=== PATIENT | female | born 1985 | race Caucasian/White ===

== ENCOUNTER → 2017-06-26 18:34 | Outpatient (CLI) | payer OTHER, SELFPAY ==
[2017-06-26 21:49] LABS: Group B Strep DNA By PCR Negative (Negative); Internal Control PASS; Probe Check PASS; Specimen Processing Control PASS
== END ==
PROVIDERS: Visit Provider Obstetrics & Gynecology
DX: Z36.85 Encounter for antenatal screening for Streptococcus B (principal)
CPT/HCPCS: 87081; 87653

== ENCOUNTER 2017-07-26 23:55 | Inpatient (IN) | payer OTHER, SELFPAY ==
[2017-07-27 00:28] VITALS: BMI 24.3
[2017-07-27 00:42] LABS: Hematocrit 35.2 % (37-47); Mean Corp Hgb Conc 34.1 g/gl (32-36); Mean Corpuscular Hgb 30.8 pg (27.0-32.0); Mean Corpuscular Volume 90.3 fL (81-99); Mean Platelet Vol. 10.9 fl (6.2-12.0); Platelet Count 212 K/mm3 (150-450); RBC Distribution Width CV 13.4 % (11.6-14.6); RBC Distribution Width SD 43.3 fl (35.1-43.9); White Blood Count 8.9 K/mm3 (4.4-11.0)
[2017-07-27 00:43] LABS: Scan Indicated on CBC? Y/N NO
[2017-07-27] MEDS: Lactated Ringers 1,000 ML 50 ML IV ×3 (01:14→05:06)
[2017-07-27] MEDS: Mag Hydrox/Al Hydrox/Simeth 30 ML UDC PO (02:16)
--- NOTE | 2017-07-27 04:38 | PCM.PN.OB ---
Subjective: Relateively comfortable with epidural Objective: Afeb VSS FHR tracing Cat 1. - Physical Exam General: Alert, Oriented x3, Cooperative, No apparent distress Lungs: Clear to auscultation, Normal air movement Cardiovascular: Regular rate, Regular Rhythm Abdomen: Soft, Non Tender, Non-Distended, Gravid, Appropriate for Gestational Age Extremities: No edema Psych/Mental Status: Normal Affect Comment: CE FD +1 to +2 station Weight: 159 lb 13.362 oz Body Mass Index (BMI) 24.3 Laboratory Tests Past 24 Hrs 07/27/17 07/27/17 07/27/17 00:28 00:28 00:28 WBC 8.9 RBC 3.90 L Hgb 12.0 Hct 35.2 L MCV 90.3 MCH 30.8 MCHC 34.1 RDW 13.4 RDW Differential 43.3 Plt Count 212 MPV 10.9 Blood Type A NEGATIVE Antibody Screen Not Reportable NEGATIVE Assessment/Plan Will start pushing efforts.
--- NOTE | 2017-07-27 04:46 | DCINST_ITS ---
Discharge Diet: No Restrictions Discharge Activity: Return to Normal Activity, May Drive, May Shower Return to work on:: 09/25/17 May resume sexual activity in: 4-6 weeks Call your doctor if your incision/area has: Sudden Increased Bleeding, Increased Pain/ Swelling, Increased Redness, Foul Smelling Discharge Call your doctor if you observe: Fever of 101 or Higher, Inability to urinate, Inability to have a bowel movement, Using more than one pad per hour, Shortness of breath, Chest pain, Calf discomfort, Uncontrolled pain Cleanse incision/area with: Soap & Water Additional Instructions: If you experience any of the following, contact your healthcare provider. * Bleeding that soaks a pad every hour for 2 hours * Fever 100.4 or higher * Unrelieved incision or abdominal pain * Swelling, redness, discharge or bleeding from your incision or episiotomy site * Your incision begins to separate * Problems urinating (including inability to urinate or burning while urinating) . * Visual changes * Severe headache * Flu-like symptoms * Pain or redness in one of both of your breasts * Pain, warmth, tenderness or swelling in your legs, especially the calf area * Frequent nausea and vomiting * Symptoms of depression or anxiety If you experience any of the following, call 911 or go to the nearest Emergency Room. * Chest pain * Problems breathing * Seizure activity * Partial or complete paralysis of a body part, slurred speech, weakness or drooping of the face, or a sudden inability to walk or hold your balance Allergies/Adverse Reactions: Allergies No Known Allergies Allergy (Verified 07/27/17 00:27) Medications to take at Discharge Vits [Prenatabs FA ] 1 tablet PO DAILY 02/02/14 Ibuprofen [Motrin] 800 mg PO TID PRN PRN #30 tab 07/27/17 The following prescriptions were given: Ibuprofen [Motrin] 800 mg PO TID PRN PRN #30 tab PRN Reason: pain or cramping Please Follow Up With: Maria Luisa Bernstein MD When: 6 weeks Primary Care Physician: Care Physician,No Primary [Primary Care Provider] - Proposed Discharge Date: 07/29/17
[2017-07-27] MEDS: Oxytocin 30 units/NS 500 ml 30 UNITS/500 ML IV.SOLN 334 UNITS IV (05:14)
--- NOTE | 2017-07-27 05:24 | PCM.OB.VAG ---
- Problem List (1) Arrested active labor, delivered, current hospitalization Status: Acute Vaginal Delivery Maternal Presentation: Active Labor Presented at 5 cm dilated with regular contractions. Amniotic Membrane Rupture Type: Spontaneous Rupture of Membrane time: 0345 Amniotic Fluid Description: Clear Final SHAE: 07/28/17 Final SHAE Source: [place] <20 weeks Gestational age: 39 Weeks and 6 Days Date of Procedure: 07/27/17 Pre-Operative Diagnosis: labor Post-Operative Diagnosis: labor Surgery/ Procedure Performed: Spontaneous Vaginal Delivery Anesthesiologist: Tam Sparrow Type of Anesthesia: Epidural Description of Procedure: Progressed to FD then pushed for less than one hour to deliver a live male . There was a tight nuchal cord but was able to deliver the baby with clamping and cutting cord. Delayed cord clamping was employed. Cord bloods were collected due to mom's A negative blood type. The placenta delivered spontaneously intact with a centrally located 3VC. The uterus contracted well. A small first degree posterior vaginal tear was repaired with 2-0 vicryl. The remainder of the vagina, cervix and perineum were intact. Presentation: Vertex Placental Delivery Description: Spontaneous Placenta Disposition: [facility] Percentage of Placenta Abruption: 0 Cord Vessel Description: 3 Vessels Cord Entanglement: Around neck x 1, tight Drain: Harper to straight drain Estimated Blood Loss: 200cc Infant A gender: Male (1 minute): 8 (5 minute): 9 Episiotomy Description: None Laceration: Midline, Vaginal Extension/lac, 1st degree Medications given after delivery: IV Pitocin Complications: None
[2017-07-27] MEDS: Oxytocin 30 units/NS 500 ml 30 UNITS/500 ML IV.SOLN 167 UNITS IV (05:44)
[2017-07-27 08:00] VITALS: BP 109/56; PULSE 78; RESP 16; TEMP 36.5
--- NOTE | 2017-07-27 08:53 | NURSING ---
0730 [facility]
[2017-07-27] MEDS: Prenatal Vits Tablet 1 TABLET PO (11:26)
[2017-07-27 12:50] VITALS: BP 108/66; PULSE 79; RESP 16; TEMP 36.6; O2SAT 96
[2017-07-27 16:02] VITALS: BP 110/59; PULSE 77; RESP 16; TEMP 36.1
[2017-07-27 20:30] VITALS: BP 111/69; PULSE 84; RESP 16; TEMP 37.2; O2SAT 96
[2017-07-28 00:05] VITALS: BP 103/64; PULSE 81; RESP 16; TEMP 36.4; O2SAT 98
[2017-07-28] MEDS: Ibuprofen 600 MG Tablet PO (04:37)
[2017-07-28 04:39] VITALS: BP 102/65; PULSE 84; RESP 16; TEMP 37.1; O2SAT 97
[2017-07-28 04:46] LABS: Hematocrit 30.2 % (37-47); Hemoglobin 10.4 g/dl (12.0-15.0); Mean Corp Hgb Conc 34.4 g/gl (32-36); Mean Corpuscular Hgb 31.6 pg (27.0-32.0); Mean Corpuscular Volume 91.8 fL (81-99); Platelet Count 161 K/mm3 (150-450); RBC Distribution Width CV 13.5 % (11.6-14.6); RBC Distribution Width SD 44.5 fl (35.1-43.9); Red Blood Count 3.29 M/mm3 (4.2-5.4); White Blood Count 8.2 K/mm3 (4.4-11.0)
[2017-07-28 04:48] LABS: Scan Indicated on CBC? Y/N NO
--- NOTE | 2017-07-28 08:14 | PCM.PN.OB ---
Patient Problems: Active and Suspected Problems Arrested active labor, delivered, current hospitalization (Acute) Subjective: PPD#1 Doing well. Ready to go home today Child at home also and missing him. breast feeding with some inc cramping while nursing - Physical Exam General: Alert, Oriented x3, Cooperative, No apparent distress HEENT: Atraumatic Neck: Supple Abdomen: Soft - Fundus firm NT at umbilicus Neurological: Cranial nerves II-XII grossly intact Psych/Mental Status: Normal Affect Vital Signs Temp Pulse Resp BP Pulse Ox 98.8 F 84 16 102/65 97 07/28/17 04:39 07/28/17 04:39 07/28/17 04:39 07/28/17 04:39 07/28/17 04:39 Oxygen Delivery Method Room Air Weight: 72.5 kg Body Mass Index (BMI) 24.3 Intake and Output for Last 24 Hours 07/26/17 07/27/17 07/28/17 23:59 23:59 23:59 Output Total 800 / 800 Balance -800 / -800 Laboratory Tests Past 24 Hrs 07/28/17 04:26 WBC 8.2 RBC 3.29 L Hgb 10.4 L Hct 30.2 L MCV 91.8 MCH 31.6 MCHC 34.4 RDW 13.5 RDW Differential 44.5 H Plt Count 161 MPV 11.0 Assessment/Plan Active and Suspected Problems Arrested active labor, delivered, current hospitalization (Acute) PPD#1 Stable pp. D/C home. RTO in 6 wk for pp check
[2017-07-28 09:00] VITALS: BP 107/61; PULSE 92; RESP 16; TEMP 36.8
[2017-07-28] MEDS: Prenatal Vits Tablet 1 TABLET PO (13:29)
[2017-07-28 14:00] VITALS: BP 104/60; PULSE 80; RESP 16; TEMP 36.6; O2SAT 100
[2017-07-28 14:10] VITALS: BP 104/60; PULSE 80; RESP 16; TEMP 36.6; O2SAT 100
== END 2017-07-28 14:10 | disposition home or self-care (01) | DRG 775 ==
PROVIDERS: Admitting Provider Obstetrics & Gynecology; Visit Provider Obstetrics & Gynecology
DX: O69.1XX0 Labor and delivery complicated by cord around neck, with compression, not applicable or unspecified (principal); O71.4 Obstetric high vaginal laceration alone; Z3A.39 39 weeks gestation of pregnancy; Z37.0 Single live birth
CPT/HCPCS: 59050; 85027; 86850; 86900; 99218; J7120; G0378